=== PATIENT | female | born 1985 | race Caucasian/White ===

== ENCOUNTER 2019-06-20 19:40 | Emergency (ER) | payer OTHER ==
--- NOTE | 2019-06-20 20:19 | EDM.PDOC ---
ED HPI GENERAL MEDICAL PROBLEM - General Chief Complaint: Lower Extremity Injury/Pain Stated Complaint: R Ankle Injury Time Seen by Provider: 06/20/19 20:00 Source of Information: Reports: Patient History Limitations: Reports: No Limitations - History of Present Illness INITIAL COMMENTS - FREE TEXT/NARRATIVE: Cady is a 34 year old female who presents to the ED with c/o right lateral ankle pain. She reports she twisted her ankle laterally while out working in the field. Reports she stepped in a hole. Does have pain with ambulation/weight bearing. Denies any pain at rest. Reports pain with plantar flexion. Denies any other complaints. Onset: Today, Sudden Onset Date: 06/20/19 Onset Time: 19:30 Duration: Intermittent Location: Reports: Lower Extremity, Right Quality: Reports: Ache, Sharp Severity: Moderate Improves with: Reports: None Worsens with: Reports: Other (weight bearing) Associated Symptoms: Reports: No Other Symptoms Treatments CREDIT RISK MODELER: Denies: Acetaminophen, Cold Therapy, NSAIDS Other Treatments CREDIT RISK MODELER: none Right Ankle Pain Score (Numeric/FACES): 7 - Related Data Allergies Allergy/AdvReac Type Severity Reaction Status Date / Time No Known Allergies Allergy Verified 06/20/19 19:44 Home Meds: Home Meds buPROPion [Wellbutrin] 300 mg PO DAILY 06/20/19 [History] Past Medical History - Past Health History Medical/Surgical History: Denies Medical/Surgical History Social & Family History - Family History Family Medical History: Noncontributory - Tobacco Use Smoking Status *Q: Never Smoker Review of Systems - Review of Systems Review Of Systems: ROS reveals no pertinent complaints other than HPI. ED EXAM, GENERAL - Physical Exam Exam: See Below Exam Limited By: No Limitations General Appearance: Alert, WD/WN, No Apparent Distress Peripheral Pulses: 2+: Posterior Tibial (R), Dorsalis Pedis (R) Extremities: No Pedal Edema, Normal Capillary Refill, Limited Range of Motion ( plantar flexion R ankle), Other (tenderness noted along latearl aspect of ankle , no swelling or ecchymosis) Neurological: Alert, Oriented, Abnormal Gait (limping RLE) Psychiatric: Normal Affect, Normal Mood Skin Exam: No: Ecchymosis Course - Vital Signs Last Recorded V/S: Last Vital Signs Temp 98.0 F 06/20/19 19:41 Pulse 98 06/20/19 19:41 Resp 14 06/20/19 19:41 BP 149/77 H 06/20/19 19:41 Pulse Ox 99 06/20/19 19:41 - Orders/Labs/Meds Orders: Active Orders 24 hr Category Date Time Status Ankle Min 3V Rt [CR] Stat Exams 06/20/19 19:44 Taken Departure - Departure Time of Disposition: 20:14 Disposition: Home, Self-Care 01 Condition: Good Clinical Impression: Right ankle sprain Qualifiers: Encounter type: initial encounter - Discharge Information *PRESCRIPTION DRUG MONITORING PROGRAM REVIEWED*: Not Applicable *COPY OF PRESCRIPTION DRUG MONITORING REPORT IN PATIENT CHETNA: Not Applicable Instructions: Ankle Sprain, [id number] Referrals: Sharla Cabrera PA [Primary Care Provider] - Additional Instructions: - Recommend RICE therapies. Keep air cast in place until pain improves. Ice affected area 3-4 x/day for ~20 minutes at a time. - Ibuprofen 800 mg three times/day as needed for pain. May also use Tylenol as needed. - Follow up with PCP if symptoms worsen or do not seem to be improving over the next 7-10 days - Problem List & Annotations (1) Right ankle sprain SNOMED Code(s): 32052553 Code(s): S93.401A - SPRAIN OF UNSPECIFIED LIGAMENT OF RIGHT ANKLE, INIT ENCNTR Status: Acute Current Visit: Yes Qualifiers: Encounter type: initial encounter - My Orders Last 24 Hours: My Active Orders 06/20/19 19:44 Ankle Min 3V Rt [CR] Stat - Assessment/Plan Last 24 Hours: My Active Orders 06/20/19 19:44 Ankle Min 3V Rt [CR] Stat Plan: Xray negative for fracture or dislocation. Discussed with pateint and significant other. Recommend RICE therapies. Air cast applied. Patient declines need for crutches. Recommend f/u with PCP if symptoms worsen or do not improve over next 7-10 days. Patient verbalized understanding. Discharged home in satisfactory condition.
== END 2019-06-20 20:23 | disposition home or self-care (01) ==
LOC: CC.ED 19:40
DX: S93.401A Sprain of unspecified ligament of right ankle, initial encounter (principal); Z79.899 Other long term (current) drug therapy; W22.8XXA Striking against or struck by other objects, initial encounter
CPT/HCPCS: 73610-RT; 99283-25

== ENCOUNTER → 2021-10-16 | Day surgery (SDC) | payer OTHER ==
[~2021-10-16] MED LIST: Ketamine 200 MG/20 ML MDV ONE; Lactated Ringers 1,000 ML IV SCH; Lidocaine 2% 5 ML SDV ONE; Ondansetron 4 MG/2 ML SDV ONE; Propofol 200 MG/20 ML SDV ONE; fentaNYL 100 MCG/2 ML SDV ONE
== END ==
LOC: CC.SDS 08:37
PROVIDERS: ATTEND Family Medicine
DX: K29.50 Unspecified chronic gastritis without bleeding (principal); K22.10 Ulcer of esophagus without bleeding; K31.7 Polyp of stomach and duodenum; K21.00 Gastro-esophageal reflux disease with esophagitis, without bleeding; F41.9 Anxiety disorder, unspecified; F32.A Depression, unspecified; G89.29 Other chronic pain; E66.01 Morbid (severe) obesity due to excess calories; Z79.899 Other long term (current) drug therapy; Z68.41 Body mass index [BMI] 40.0-44.9, adult
CPT/HCPCS: 36415; 84703; 87081; J2405; J2704; J3010; J7120